=== PATIENT | male | born 1985 | race Caucasian/White ===

== ENCOUNTER 2017-12-13 18:20 | Emergency (ER) | payer SELFPAY ==
[2017-12-13 18:26] VITALS: BMI 26.2
[2017-12-13] MEDS ORDERED: SODIUM CHLORIDE 1,000 ML IV STA (19:39)
--- NOTE | 2017-12-13 19:39 | PDOC ---
History of Present Illness - General History Source: Patient Exam Limitations: No Limitations <Pelon Cleaning - Last Filed: 12/13/17 20:10> <Sherice To - Last Filed: 12/14/17 03:03> <Migue Roberson - Last Filed: 12/14/17 03:24> - General Chief Complaint: Syncope/Near Syncope Stated Complaint: FATIGUE Time Seen by Provider: 12/13/17 18:43 - History of Present Illness Initial Comments: 12/13/17 20:10 The patient is a 32 year old male, with no significant past medical history, who presents to the emergency department with a headache and light sensitivity after a syncopal episode today. He reports that he was feeling fine all day and ate well today but became dizzy after getting up from the couch and lost consciousness for roughly 5 minutes. He notes that he doesn't remember the entire episode but notes that he does feel discomfort on the left side of his head. He notes that he currently feels weak and nauseated. He notes that he has been experiencing chest pain on and off but not currently. He reports that The patient denies shortness of breath, headache and dizziness. Denies fever, chills, vomit, diarrhea and constipation. Allergies: None Past surgical history: None reported Social history: pack daily since age 15. No alcohol or drug use reported (Pelon Cleaning) Past History <Pelon Cleaning - Last Filed: 12/13/17 20:10> - Past Medical History COPD: No - Immunization History Td Vaccination: Yes (3 yrs ago) Immunization Up to Date: Yes - Suicide/Smoking/Psychosocial Hx Smoking Status: Yes Smoking History: Current every day smoker Years of Tobacco Use: 11 Have you smoked in the past 12 months: Yes Number of Cigarettes Smoked Daily: 10 Cigars Per Day: 0 Information on smoking cessation initiated: No Hx Alcohol Use: No Drug/Substance Use Hx: No Substance Use Type: None <Sherice To - Last Filed: 12/14/17 03:03> <Migue Roberson - Last Filed: 12/14/17 03:24> - Past Medical History Allergies/Adverse Reactions: Allergies Allergy/AdvReac Type Severity Reaction Status Date / Time No Known Allergies Allergy Verified 12/13/17 18:26 Home Medications: Ambulatory Orders NK [No Known Home Medication] 07/09/16 Review of Systems - Review of Systems Able to Perform ROS?: Yes <Pelon Cleaning - Last Filed: 12/13/17 20:10> <Sherice To - Last Filed: 12/14/17 03:03> <Migue Roberson - Last Filed: 12/14/17 03:24> - Review of Systems Comments:: 12/13/17 20:10 GENERAL/CONSTITUTIONAL: (+) Generalized weakness. No fever or chills. HEAD, EYES, EARS, NOSE AND THROAT: No change in vision. No ear pain or discharge. No sore throat.- CARDIOVASCULAR: No chest pain or shortness of breath RESPIRATORY: No cough, wheezing, or hemoptysis. GASTROINTESTINAL: (+) Nausea. No vomiting, diarrhea or constipation. GENITOURINARY: No dysuria, frequency, or change in urination. MUSCULOSKELETAL: No joint or muscle swelling or pain. No neck or back pain. SKIN: No rash NEUROLOGIC: No headache, vertigo, loss of consciousness, or change in strength/ sensation. ENDOCRINE: No increased thirst. No abnormal weight change HEMATOLOGIC/LYMPHATIC: No anemia, easy bleeding, or history of blood clots. ALLERGIC/IMMUNOLOGIC: No hives or skin allergy. (Pelon Cleaning) *Physical Exam <Pelon Cleaning - Last Filed: 12/13/17 20:10> <Sherice To - Last Filed: 12/14/17 03:03> <Migue Roberson - Last Filed: 12/14/17 03:24> - Vital Signs Last Vital Signs Temp Pulse Resp BP Pulse Ox 97.8 F 88 12 106/82 100 12/13/17 18:23 12/13/17 18:23 12/13/17 18:23 12/13/17 18:23 12/13/17 18:23 - Physical Exam Comments: 12/13/17 20:10 GENERAL: Awake, alert, and fully oriented, in no acute distress HEAD: No signs of trauma, normocephalic, atraumatic EYES: PERRLA, EOMI, sclera anicteric, conjunctiva clear ENT: Auricles normal inspection, hearing grossly normal, nares patent, oropharynx clear without exudates. Moist mucosa NECK: Normal ROM, supple, no lymphadenopathy, JVD, or masses LUNGS: No distress, speaks full sentences, clear to auscultation bilaterally HEART: Regular rate and rhythm, normal S1 and S2, no murmurs, rubs or gallops, peripheral pulses normal and equal bilaterally. ABDOMEN: Soft, nontender, normoactive bowel sounds. No guarding, no rebound. No masses EXTREMITIES : Normal inspection, Normal range of motion, no edema. No clubbing or cyanosis. NEUROLOGICAL: Cranial nerves II through XII grossly intact. Normal speech, normal gait, no focal sensorimotor deficits SKIN: Warm, Dry, normal turgor, no rashes or lesions noted (Pelon Cleaning) ED Treatment Course - LABORATORY CBC & Chemistry Diagram: 12/13/17 19:54 12/13/17 19:54 <Pelon Cleaning - Last Filed: 12/13/17 20:10> - LABORATORY CBC & Chemistry Diagram: 12/13/17 19:54 12/13/17 19:54 <Sherice To - Last Filed: 12/14/17 03:03> - LABORATORY CBC & Chemistry Diagram: 12/13/17 19:54 12/13/17 19:54 <Migue Roberson - Last Filed: 12/14/17 03:24> - ADDITIONAL ORDERS Additional order review: Laboratory Results 12/14/17 12/13/17 12/13/17 02:42 21:17 20:50 PT with INR INR Sodium Potassium Chloride Carbon Dioxide Anion Gap BUN Creatinine Creat Clearance w eGFR Random Glucose Calcium Total Bilirubin AST ALT Alkaline Phosphatase Creatine Kinase 78 Troponin I < 0.02 Total Protein Albumin Triglycerides Cholesterol Total LDL Cholesterol HDL Cholesterol Urine Color Straw Urine Appearance Clear Urine pH 8.0 Ur Specific [place] 1.005 Urine Protein Negative Urine Glucose (UA) Negative Urine Ketones Negative Urine Blood Negative Urine Nitrite Negative Urine Bilirubin Negative Urine Urobilinogen Negative Ur Leukocyte Esterase Negative Opiates Screen Negative Methadone Screen Negative Barbiturate Screen Negative Phencyclidine Screen Negative Ur Amphetamines Screen Negative MDMA (Ecstasy) Screen Negative Benzodiazepines Screen Positive Cocaine Screen Negative U Marijuana (THC) Screen Positive Blood Type Antibody Screen 12/13/17 12/13/17 12/13/17 19:54 19:54 19:54 PT with INR 12.90 H INR 1.14 Sodium 139 Potassium 4.0 Chloride 105 Carbon Dioxide 27 Anion Gap 7 L BUN 11 D Creatinine 0.8 Creat Clearance w eGFR > 60 Random Glucose 82 Calcium 8.3 L Total Bilirubin 0.4 D AST 9 L D ALT 14 D Alkaline Phosphatase 70 Creatine Kinase 90 Troponin I < 0.02 Total Protein 7.2 Albumin 3.9 Triglycerides 184 H Cholesterol 163 Total LDL Cholesterol 112 H HDL Cholesterol 30 L Urine Color Urine Appearance Urine pH Ur Specific [place] Urine Protein Urine Glucose (UA) Urine Ketones Urine Blood Urine Nitrite Urine Bilirubin Urine Urobilinogen Ur Leukocyte Esterase Opiates Screen Methadone Screen Barbiturate Screen Phencyclidine Screen Ur Amphetamines Screen MDMA (Ecstasy) Screen Benzodiazepines Screen Cocaine Screen U Marijuana (THC) Screen Blood Type B NEGATIVE Antibody Screen Negative 12/13/17 19:54 RBC 5.00 MCV 87.8 MCHC 33.9 RDW 13.2 MPV 8.2 Neutrophils % 66.0 Lymphocytes % 21.1 D Monocytes % 9.1 Eosinophils % 3.1 Basophils % 0.7 - Medications Given in the ED: ED Medications Discontinued Medications Generic Name Dose Route Start Last Admin Trade Name Freq PRN Reason Stop Dose Admin Sodium Chloride 1,000 mls @ 1,000 mls/hr 12/13/17 19:39 12/13/17 20:08 Normal Saline - IV 12/13/17 20:38 1,000 mls/hr ASDIR STA Administration Medical Decision Making <Pelon Cleaning - Last Filed: 12/13/17 20:10> <Sherice To - Last Filed: 12/14/17 03:03> <Migue Roberson - Last Filed: 12/14/17 03:24> - Medical Decision Making 12/14/17 03:03 32 yo male with no significant PMH has an episode of near syncope today\ -he DENIES any chest pain or shortness of breath,confusion ,weakness -workup negative,cbc no anemia,chemistry unremarkable- first trop negative ,ct head no acute intracranial pathology second troponin is pending (Sherice To) Second troponin negative patient asymptomatic instructed patient follow-up with his primary care provider Findings, the need for follow-up and strict return instructions discussed with patient. (Migue Roberson) *DC/Admit/Observation/Transfer <Pelon Cleaning - Last Filed: 12/13/17 20:10> <Sherice To - Last Filed: 12/14/17 03:03> <Migue Roberson - Last Filed: 12/14/17 03:24> Diagnosis at time of Disposition: Near syncope - Discharge Dispostion Condition at time of disposition: Good - Patient Instructions Printed Discharge Instructions: DI for Syncope in Adults (Fainting) Additional Instructions: You can followup at our clinic at [address] [place] [address] in 1-2 days . To make an appointment call [phone] Return to the emergency department for any severe worsening symptoms or for any concerns. - Post Discharge Activity Forms/Work/School Notes: Back to Work - Attestations Scribe Attestion: 12/13/17 20:10 Documentation prepared by [employer]on [employer], acting as medical affairs manager for Sherice To MD (Pelon [employer])
[2017-12-13 20:07] LABS: BASO % 0.7 % (0-2.0); EOS % 3.1 % (0-4.5); HEMATOCRIT 43.9 % (35.4-49); HEMOGLOBIN 14.9 GM/dL (11.7-16.9); LYMPH % 21.1 % (8-40); MCH 29.7 pg (25.7-33.7); MCHC 33.9 g/dl (32.0-35.9); MEAN CELL VOLUME 87.8 fl (80-96); MEAN PLT VOLUME 8.2 fl (7.5-11.1); MONO % 9.1 % (3.8-10.2); PLATELET COUNT 306 K/MM3 (134-434); RDW 13.2 % (11.9-15.9); WHITE BLOOD COUNT 8.7 K/mm3 (4.0-10.0)
[2017-12-13 20:23] LABS: INR 1.14 (0.82-1.09); PROTHROMBIN TIME (PATIENT) 12.9 SEC (9.98-11.88)
[2017-12-13 20:50] LABS: ALBUMIN 3.9 g/dl (3.4-5.0); ANION GAP 7 (8-16); BLOOD UREA NITROGEN 11 mg/dL (7-18); CALCIUM 8.3 mg/dL (8.5-10.1); CHLORIDE 105 mmol/L (98-107); CHOLESTEROL 163 mg/dL (50-200); CO2 27 mmol/L (21-32); CREATININE 0.8 mg/dL (0.7-1.3); GLUCOSE,RANDOM 82 mg/dL (74-106); SGOT/AST 9 U/L (15-37); SGPT/ALT 14 U/L (12-78); SODIUM 139 mmol/L (136-145)
[2017-12-13 20:52] LABS: ALK PHOS 70 U/L (45-117); BILIRUBIN,TOTAL 0.4 mg/dL (0.2-1.0); HDL CHOLESTEROL 30 mg/dL (40-60); LDL CHOLESTEROL (ONLY SJRH) 112 mg/dL (5-100); TOT PROT 7.2 g/dl (6.4-8.2); TRIGLYCERIDES 184 mg/dL (35-160)
[2017-12-13 21:23] LABS: URINE APPEARANCE CLEAR; URINE BILIRUBIN NEGATIVE (NEGATIVE); URINE BLOOD NEGATIVE (NEGATIVE); URINE COLOR STRAW; URINE GLUCOSE (UA) NEGATIVE (NEGATIVE); URINE KETONE NEGATIVE (NEGATIVE); URINE LEUK ESTERASE NEGATIVE (NEGATIVE); URINE NITRITE NEGATIVE (NEGATIVE); URINE PROTEIN NEGATIVE (NEGATIVE); URINE UROBILINOGEN NEGATIVE mg/dL (0.2-1.0)
[2017-12-13 22:08] VITALS: TEMP 97.8
[2017-12-13 22:36] LABS: COCAINE, UR NEGATIVE ng/ml (CUTOFF=300); METHADONE, UR NEGATIVE ng/ml (CUTOFF=300); OPIATES, URI NEGATIVE ng/ml (CUTOFF=300); PHENCYCLIDINE,URINE NEGATIVE ng/ml (CUTOFF=25); URINE AMPHETAMINES NEGATIVE ng/ml (CUTOFF=500); URINE BARBITURATES NEGATIVE ng/ml (CUTOFF=200)
[2017-12-13 22:37] LABS: URINE BENZODIAZEPINES POSITIVE ng/ml (CUTOFF=200)
[2017-12-14 03:40] VITALS: BP 108/62; PULSE 86
--- NOTE | 2017-12-14 11:30 | EKG ---
Test Reason : Blood Pressure : / mmHG Vent. Rate : 087 BPM Atrial Rate : 087 BPM P-R Int : 138 ms QRS Dur : 084 ms QT Int : 382 ms P-R-T Axes : 048 050 055 degrees QTc Int : 459 ms NORMAL SINUS RHYTHM NONSPECIFIC T WAVE ABNORMALITY ABNORMAL ECG NO PREVIOUS ECGS AVAILABLE Confirmed by MD Abebe, Brady ([id number]) on 12/14/2017 11:30:04 AM Referred By: Confirmed By:Brady Lomas MD
== END 2017-12-14 03:40 | disposition home or self-care (01) ==
LOC: JER 18:20
PROC: 3E0337Z Introduction of Electrolytic and Water Balance Substance into Peripheral Vein, Percutaneous Approach (ICD-10-PCS; principal; 2017-12-13)
DX: R55 Syncope and collapse (principal); F17.210 Nicotine dependence, cigarettes, uncomplicated
CPT/HCPCS: 36415; 70450-TC; 71045-TC-FY; 80053; 80307; 81003; 82465; 82550; 83718; 83721; 84478; 84484; 85025; 85610; 86850; 86900; 86901; 93005; 93010; 99285-25

== ENCOUNTER 2019-08-02 17:28 | Emergency (ER) | payer OTHER ==
[2019-08-02 17:35] VITALS: BP 131/77; PULSE 99; TEMP 98.3; BMI 28.1
[2019-08-02] MEDS ORDERED: IBUPROFEN 600 MG TABLET (FP) PO ONE ×2 (17:35→18:17)
--- NOTE | 2019-08-02 17:35 | PDOC ---
Rapid Medical Evaluation Time Seen by Provider: 08/02/19 17:33 Medical Evaluation: Allergies Allergy/AdvReac Type Severity Reaction Status Date / Time No Known Allergies Allergy Verified 12/13/17 18:26 08/02/19 17:33 I have performed a brief in-person evaluation of this patient. The patient presents with a chief complaint of: ankle injury Pertinent physical exam findings:stable and in NAD, non-focal I have ordered the following: xray, motrin The patient will proceed to the ED for further evaluation.
--- NOTE | 2019-08-02 18:37 | PDOC ---
History of Present Illness - General Chief Complaint: Injury Stated Complaint: RIGHT ANKLE INJURY Time Seen by Provider: 08/02/19 17:33 - History of Present Illness Initial Comments: 08/02/19 18:34 34-year-old male without comorbidities presents for evaluation of right ankle pain. He describes an inversion injury which occurred earlier this evening prior to arrival in the emergency room. He states tripping down 2 stairs Past History - Past Medical History Allergies/Adverse Reactions: Allergies Allergy/AdvReac Type Severity Reaction Status Date / Time No Known Allergies Allergy Verified 08/02/19 17:35 Home Medications: Ambulatory Orders NK [No Known Home Medication] 07/09/16 COPD: No - Immunization History Td Vaccination: Yes (3 yrs ago) Immunization Up to Date: Yes - Psycho Social/Smoking Cessation Hx Smoking Status: Yes Smoking History: Current every day smoker Years of Tobacco Use: 11 Have you smoked in the past 12 months: Yes Number of Cigarettes Smoked Daily: 7 Cigars Per Day: 0 Information on smoking cessation initiated: No Hx Alcohol Use: No Drug/Substance Use Hx: No Substance Use Type: None Review of Systems - Review of Systems Musculoskeletal: Yes: Joint Pain *Physical Exam - Vital Signs Last Vital Signs Temp Pulse Resp BP Pulse Ox 98.3 F 99 H 16 131/77 100 08/02/19 17:31 08/02/19 17:31 08/02/19 17:31 08/02/19 17:31 08/02/19 17:31 - Physical Exam Comments: 08/02/19 18:35 There is right ankle swelling. No tenderness about the proximal fibula knee or along the distal course of the fibula. No tenderness about the medial lateral malleolus base of the fifth metatarsal or navicular. Mild tenderness over the ATFL no gross sensorimotor deficits no gross instability neurovascularly intact ED Treatment Course - Medications Given in the ED: ED Medications Discontinued Medications Generic Name Dose Route Start Last Admin Trade Name Freq PRN Reason Stop Dose Admin Ibuprofen 600 mg 08/02/19 17:35 08/02/19 18:21 Motrin - PO 08/02/19 17:36 600 mg ONCE ONE Administration Medical Decision Making - Medical Decision Making 08/02/19 18:35 X-rays of the right foot and ankle are negative for fracture weightbearing as tolerated with Aircast and crutches follow-up with Ortho discussed use of Tylenol and Motrin for pain Discharge - Discharge Information Problems reviewed: Yes Clinical Impression/Diagnosis: Ankle sprain Condition: Stable Disposition: HOME - Admission No - Follow up/Referral Referrals: John Lovelace DO [Staff Physician] - - Patient Discharge Instructions Additional Instructions: You may weight-bear as tolerated with the Aircast and crutches follow-up with orthopedic surgery in 1 to 2 days for further evaluation and treatment options. Return to the emergency room for worsening symptoms. Tylenol as directed for pain and swelling keep the extremity elevated. Work note was provided for you - Post Discharge Activity Work/Back to School Note: Back to Work
== END 2019-08-02 18:55 | disposition home or self-care (01) ==
LOC: JERFT 17:28
PROC: 2W3QX1Z Immobilization of Right Lower Leg using Splint (ICD-10-PCS; principal; 2019-08-02)
DX: S93.401A Sprain of unspecified ligament of right ankle, initial encounter (principal); W10.9XXA Fall (on) (from) unspecified stairs and steps, initial encounter; Y93.89 Activity, other specified; Y92.9 Unspecified place or not applicable; F17.210 Nicotine dependence, cigarettes, uncomplicated
CPT/HCPCS: 29515; 73610-TC-RT-FY; 73630-TC-RT-FY; 99282-25

== ENCOUNTER 2019-08-29 21:50 | Emergency (ER) | payer OTHER ==
[2019-08-29 22:06] VITALS: BP 120/80; PULSE 79; TEMP 97.8; BMI 27.3
--- NOTE | 2019-08-29 22:20 | PDOC ---
History of Present Illness - General Chief Complaint: Toothache Stated Complaint: TOOTHACHE Time Seen by Provider: 08/29/19 22:18 - History of Present Illness Initial Comments: 08/29/19 22:19 34-year-old male without comorbidities presents for evaluation of toothache x4 days. He states he bit on an ice cube and since that time his tooth has been hurting. The tooth in question is the bottom left incisor Past History - Past Medical History Allergies/Adverse Reactions: Allergies Allergy/AdvReac Type Severity Reaction Status Date / Time No Known Allergies Allergy Verified 08/29/19 22:04 Home Medications: Ambulatory Orders Amoxicillin - [Amoxicillin 500mg Capsule -] 500 mg PO BID #14 capsule 08/29/19 Ibuprofen [Motrin -] 600 mg PO TID #30 tablet 08/29/19 COPD: No - Immunization History Td Vaccination: Yes (3 yrs ago) Immunization Up to Date: Yes - Psycho Social/Smoking Cessation Hx Smoking Status: Yes Smoking History: Current every day smoker Years of Tobacco Use: 11 Have you smoked in the past 12 months: Yes Number of Cigarettes Smoked Daily: 10 Cigars Per Day: 0 Information on smoking cessation initiated: No Hx Alcohol Use: No Drug/Substance Use Hx: No Substance Use Type: None Review of Systems - Review of Systems Constitutional: No: Fever HEENTM: Yes: Dental Problems *Physical Exam - Vital Signs Last Vital Signs Temp Pulse Resp BP Pulse Ox 97.8 F 79 18 120/80 100 08/29/19 22:04 08/29/19 22:04 08/29/19 22:04 08/29/19 22:04 08/29/19 22:04 - Physical Exam Comments: 08/29/19 22:19 There is no areas of fluctuance or erythema around the bottom left lateral incisor Medical Decision Making - Medical Decision Making 08/29/19 22:19 Amoxicillin and Motrin follow-up with urgent care dental Discharge - Discharge Information Problems reviewed: Yes Clinical Impression/Diagnosis: Toothache Condition: Stable Disposition: HOME - Admission No - Additional Discharge Information Prescriptions: Amoxicillin - [Amoxicillin 500mg Capsule -] 500 mg PO BID #14 capsule Ibuprofen [Motrin -] 600 mg PO TID #30 tablet - Follow up/Referral Referrals: Urgent Care Dental [Outside] - Patient Discharge Instructions Patient Printed Discharge Instructions: DI for Dental Pain Additional Instructions: Please take the antibiotic as directed. Motrin is 1 tablet 3 times a day with food discontinue the medication if it bothers her stomach. Do not take any other [id number] anti-inflammatories such as Advil Motrin Aleve or ibuprofen. You may take additional Tylenol as directed return to the emergency room for worsening symptoms and without fail please follow-up with urgent care dental in 1 to 2 days for further evaluation and treatment options. - Post Discharge Activity
== END 2019-08-29 22:39 | disposition home or self-care (01) ==
LOC: JERFT 21:50
DX: K08.89 Other specified disorders of teeth and supporting structures (principal)
CPT/HCPCS: 99281-25

== ENCOUNTER 2020-07-26 18:05 | Emergency (ER) | payer OTHER ==
[2020-07-26 18:13] VITALS: BP 125/77; PULSE 83; TEMP 98.4; BMI 26.6
--- OUTSIDE RECORDS SUMMARY | 2020-07-26 18:22 | XMS ---
:1985 Author Organization [facility] Care Team Providers Name Role Phone U KECIA GARZA MD Unavailable Unavailable VALERIE Unavailable Unavailable ANDERS GARZA MD Unavailable Unavailable MD TATE Unavailable Unavailable SHANNAN Unavailable Unavailable [facility] Unavailable Unavailable Re-disclosure Warning The records that you are about to access may contain information from federally- assisted alcohol or drug abuse programs. If such information is present, then the following federally mandated warning applies: This information has been disclosed to you from records protected by federal confidentiality rules (42 CFR part 2). The federal rules prohibit you from making any further disclosure of this information unless further disclosure is expressly permitted by the written consent of the person to whom it pertains or as otherwise permitted by 42 CFR part 2. A general authorization for the release of medical or other information is NOT sufficient for this purpose. The Federal rules restrict any use of the information to criminally investigate or prosecute any alcohol or drug abuse patient.The records that you are about to access may contain highly sensitive health information, the redisclosure of which is protected by Article 27-F of the [facility] Public Health law. If you continue you may haveaccess to information: Regarding HIV / AIDS; Provided by facilities licensed or operated by the [facility] Office of Mental Health; or Provided by the [facility] Office for People With Developmental Disabilities. If such information is present, then the following [facility] mandated warning applies: This information has been disclosed to you from confidential records which are protected by state law. State law prohibits you from making any further disclosure of this information without the specific written consent of the person to whom it pertains, or as otherwise permitted by law. Any unauthorized further disclosure in violation of state law may result in a fine or fpc sentence or both. A general authorization for the release of medical or other information is NOT sufficient authorization for further disclosure. Encounters Encounter Providers Location Date Indications Data Source(s ) Outpatient Attender: MAGAN CONTRERAS 06/26/2020 [facility] piotr MOONEYdmitter: 03:52:00 PM [facility] EDT Outpatient Attender: MAGAN CONTRERAS 06/14/2020 [facility] piotr Grantitter: FER 09:48:00 AM fanny CAMPBELL EDT - 06/14/2020 04:02:00 PM EDT Patient discharged. Emergency Attender: WHIT 05/22/2020 05:23:00 LEFT ELB OW RED [facility] MDAttender: PM EDT - 05/22/2020 AND [facility] KECIA Evans MD 06:00:00 PM EDT LEFT ELBOW RED AND SWOLLEN Patient discharged. Outpatient Attender: [id number] [facility] 12/05/2019 01:23:54 PM [facility] ([facility]) Patient admitted. Insurance Providers Payer name Policy type Policy ID Covered Covered democrat's Policy P stevie / Coverage democrat ID relationship to Garsia Inf ormation type garsia [employer] [id number] SP [id number] SELF PAY 0000 Self 0000 MEDICAID OP [id number] Self [id number] [facility] [id number] Self [id number] [employer]/UB A MEDICAID [id number] SP [id number] SELF PAY 00 Self 00 MEDICAID OP [id number] Self [id number] MMC [id number] Self [id number] [employer]/UB A [employer] [id number] SP [id number] DAVID O [facility] MEDICAID [id number] SP [id number] [employer] [id number] SP [id number] MEDICAID [id number] SP [id number] PENDING SP EXCHANGE SELF PAY SP INSURANCE [facility] MEDICAID [id number] SP [id number] [facility] [place] [id number] SP [id number] [facility] Medicaid [id number] [employer] SELF PAY Problems, Conditions, and Diagnoses Code Display Name Description Problem Type Effective Dates Data Source(s) L73.8 Other specified OTHER SPECIFIED Diagnosis 05/22/2020 [facility] follicular FOLLICULAR 05:23:00 PM EDT [facility] disorders [facility] L03.114 Cellulitis of CELLULITIS OF Diagnosis 05/22/2020 [facility] n left upper limb LEFT UPPER LIMB 05:23:00 PM EDT [facility]
--- NOTE | 2020-07-26 18:57 | PDOC ---
History of Present Illness - General Chief Complaint: Abscess Boil Stated Complaint: CYST L UNDER ARM Time Seen by Provider: 07/26/20 18:31 History Source: Patient Exam Limitations: No Limitations - History of Present Illness Initial Comments: 07/26/20 18:57 5-year-old male presents to ED with complaints of bumps to his left axilla for the past 3 days and started putting warm soaks to area which is allowing 1 of the bumps to drain. Patient states switch to a new deodorant last week and noticed the bumps for a few days thereafter. Is this a multiple visit Asthma Patient?: No Timing/Duration: other (3 days ) Severity: mild Associated Symptoms: reports: denies symptoms Past History - Travel History Traveled outside of the country in the last 30 days: No Close contact w/someone who was outside of country & ill: No - Medical History Allergies/Adverse Reactions: Allergies Allergy/AdvReac Type Severity Reaction Status Date / Time No Known Allergies Allergy Verified 07/26/20 18:08 Home Medications: Ambulatory Orders Lidocaine 5% Patch [Lidoderm Patch -] 1 patch TP DAILY #7 patch 07/05/20 Sulfamethoxazole/Trimethoprim [Bactrim Ds -] 1 tab PO BID #14 tablet 07/26/20 Anemia: No Asthma: No Cancer: No Cardiac Disorders: No CVA: No (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) COPD: No CHF: No Diabetes: No GI Disorders: No Disorders: No HTN: No Hypercholesterolemia: No Liver Disease: No Seizures: No Thyroid Disease: No - Immunization History Td Vaccination: Yes (3 yrs ago) Immunization Up to Date: Yes - Psycho-Social/Smoking History Patient Lives Alone: No Lives with/in: spouse/SO Smoking Status: Yes Smoking History: Current every day smoker Years of Tobacco Use: 11 Have you smoked in the past 12 months: Yes Number of Cigarettes Smoked Daily: 10 Cigars Per Day: 0 Information on smoking cessation initiated: Yes 'Breaking Loose' booklet given: 11/23/19 - Substance Abuse Hx (Audit-C & DAST Scrn) How often the patient has a drink containing alcohol: Never Score: In Men: 4 or > Positive; In Women: 3 or > Positive: 0 Screen Result (Pos requires Nsg. Audit-10AR): Negative In the last yr the pt used illegal drug/Rx for NonMed reason: No Score: Yes response is considered Positive: 0 Screen Result (Positive result requires Nsg. DAST-10): Negative Review of Systems - Review of Systems Able to Perform ROS?: No Is the patient limited Romansh proficient: No Constitutional: No: Symptoms Reported HEENTM: No: Symptoms Reported Respiratory: No: Symptoms reported Cardiac (ROS): No: Symptoms Reported ABD/GI: No: Symptoms Reported : No: Symptoms Reported Musculoskeletal: No: Symptoms Reported Integumentary: Yes: Lumps Endocrine: No: Symptoms Reported Hematologic/Lymphatic: No: Symptoms Reported *Physical Exam - Vital Signs Last Vital Signs Temp Pulse Resp BP Pulse Ox 98.4 F 83 17 125/77 100 07/26/20 18:08 07/26/20 18:08 07/26/20 18:08 07/26/20 18:08 07/26/20 18:08 - Physical Exam General Appearance: Yes: Nourished, Appropriately Dressed. No: Apparent Distress HEENT: negative: Pale Conjunctivae Neck: positive: Supple. negative: Lymphadenopathy (R), Lymphadenopathy (L) Respiratory/Chest: positive: Lungs Clear, Normal Breath Sounds. negative: Respiratory Distress, Accessory Muscle Use Cardiovascular: positive: Regular Rhythm, Regular Rate. negative: Murmur Gastrointestinal/Abdominal: positive: Soft. negative: Tenderness Integumentary: positive: Normal Color, Other Neurologic: positive: Motor Strength 5/5 (Ambulatory) Medical Decision Making - Medical Decision Making 07/26/20 19:08 Chief complaint: Abscess to left axilla. No fever. Recent change in deodorant. Exam: Abscess x3 with a draining. No palpable fluctuance. Plan: Discharge home with Bactrim wound culture sent. Patient given supportive care instructions. Discharge - Discharge Information Problems reviewed: Yes Clinical Impression/Diagnosis: Abscess Condition: Good Disposition: HOME - Additional Discharge Information Prescriptions: Sulfamethoxazole/Trimethoprim [Bactrim Ds -] 1 tab PO BID #14 tablet - Follow up/Referral - Patient Discharge Instructions Patient Printed Discharge Instructions: DI for Skin Abscess Additional Instructions: Continue with warm soaks to area. Take antibiotics as prescribed. We will contact you with wound culture is positive for an organism not responsive to Bactrim. - Post Discharge Activity
--- NOTE | 2020-07-28 12:41 | PDOC ---
Patient Follow-up (Call Back) - Post ED Follow - Up Condition at time of discharge: Good Disposition at time of original discharge: HOME Reason for Call Back: Abnwl. Lab (See if call from laboratory reporting MRSA on preliminary wound culture patient currently on Bactrim. Awaiting final result.)
== END 2020-07-26 20:46 | disposition home or self-care (01) ==
LOC: JERFT 18:05
DX: L02.412 Cutaneous abscess of left axilla (principal)
CPT/HCPCS: 87070; 87186; 87205; 99282-25

== ENCOUNTER 2021-01-17 01:42 | Emergency (ER) | payer OTHER ==
[2021-01-17 02:07] VITALS: BP 117/74; PULSE 73; TEMP 98.7; BMI 24.9
== END 2021-01-17 02:52 | disposition home or self-care (01) ==
LOC: JER 01:42
DX: H60.531 Acute contact otitis externa, right ear (principal)
CPT/HCPCS: 99282-25

== ENCOUNTER 2021-01-23 18:58 | Emergency (ER) | payer OTHER ==
[2021-01-23 19:08] VITALS: BP 105/63; PULSE 81; TEMP 98.4; BMI 24.3
[2021-01-23] MEDS ORDERED: KETOROLAC TROMETHAMINE 30 MG/1 ML VIAL IM ONE (19:47)
== END 2021-01-23 20:30 | disposition home or self-care (01) ==
LOC: JERFT 18:58
DX: H66.91 Otitis media, unspecified, right ear (principal)
CPT/HCPCS: 99283-25